=== PATIENT | male | born 1955 | race African-American/Black ===

== ENCOUNTER 2016-04-02 19:08 | Observation (INO) | payer OTHER ==
[~2016-04-02] VITALS: Ht 180.3 cm; Wt 96.8 kg
[2016-04-02] MEDS ORDERED: OPTIRAY 350 100 ML VIAL EDI IV ONE (19:09)
[2016-04-02] MEDS ORDERED: SODIUM CHLORIDE 0.9% 500 ML IV ONE (20:12)
[2016-04-02] MEDS ORDERED: HEPARIN 5,000 UNITS/ML **DVT/PE IV PRN (22:30)
[2016-04-02] MEDS ORDERED: HEPARIN 20,000 UNIT/500 ML *DVT/PE IV SCH (22:30)
[2016-04-02] MEDS ORDERED: SODIUM CHLORIDE 0.9% 1,000 ML ONE (23:39)
[2016-04-03 01:37] VITALS: BP_SYST 149; RESP 18; TEMP 97.6
[2016-04-03 02:07] VITALS: Ht 180.3 cm; Wt 96.8 kg
[2016-04-03 07:48] VITALS: BP_SYST 139; RESP 18; TEMP 97.7
[2016-04-03] MEDS ORDERED: NICOTINE 21 MG/24 HR TRANSDERM SCH (09:00)
[2016-04-03] MEDS ORDERED: ASPIRIN 81 MG CHEW TAB PO SCH (09:00)
[2016-04-03 12:10] VITALS: BP_SYST 130; RESP 18; TEMP 97.9
[2016-04-03] MEDS ORDERED: ENOXAPARIN 100 MG/ML SYR SUBQ ONE (12:15)
[2016-04-03 15:11] VITALS: BP_SYST 142; RESP 18; TEMP 97.2
[2016-04-03 15:34] VITALS: BP_SYST 142; RESP 18; TEMP 97.2
[2016-04-03] MEDS ORDERED: CLOPIDOGREL 75 MG TAB PO SCH (21:00)
[2016-04-03] MEDS ORDERED: Atorvastatin 20 MG TAB PO SCH (21:00)
== END 2016-04-03 15:59 | disposition home or self-care (01) ==
LOC: ER 19:08 → EMR 23:16 → ENPENDDIS 23:16 → 4NT 04-03 01:48
PROVIDERS: ADMIT Internal Medicine Hematology & Oncology; ATTEND Internal Medicine Hematology & Oncology
DX: T82.897A Other specified complication of cardiac prosthetic devices, implants and grafts, initial encounter (principal); I73.9 Peripheral vascular disease, unspecified; D75.1 Secondary polycythemia; I70.1 Atherosclerosis of renal artery; I77.1 Stricture of artery; G47.30 Sleep apnea, unspecified; J44.9 Chronic obstructive pulmonary disease, unspecified; Z86.73 Personal history of transient ischemic attack (TIA), and cerebral infarction without residual deficits; Z86.718 Personal history of other venous thrombosis and embolism; Z79.01 Long term (current) use of anticoagulants; F17.200 Nicotine dependence, unspecified, uncomplicated; Z79.82 Long term (current) use of aspirin
CPT/HCPCS: 36415; 75635; 80047; 85014; 85025; 85610; 85730; 93971; 96361; 96365; 99284; G0378; J1644; J7040; Q9967